=== PATIENT | female | born 1960 | race Caucasian/White ===

== ENCOUNTER 2021-01-12 13:42 | Emergency (ER) | payer OTHER ==
[~2021-01-12 13:42] MED LIST: PREDNISONE20 MG PO; PROVENTIL HFA6.7 GM INH; VIBRAMYCIN100 MG PO
[2021-01-12 14:47] LABS: HEMOGLOBIN 10.6 gm/dl (12.3-15.3); RED BLOOD COUNT 4.13 M/UL (4.00-5.10); WHITE BLOOD COUNT 7.9 K/UL (4.5-11.0)
[2021-01-12 15:07] LABS: BUN/CREATININE RATIO 15 (0-10)
[2021-01-12] MEDS ORDERED: CELEBREX100 MG PO (19:56)
== END 2021-01-12 20:24 | disposition home or self-care (01) ==
LOC: ER1 13:42
PROVIDERS: Physician Assistant Medical
DX: M54.5 Low back pain (principal); K21.9 Gastro-esophageal reflux disease without esophagitis; Z88.6 Allergy status to analgesic agent
CPT/HCPCS: 80053; 81001; 85025; 96374; 99284; J1885; Q9967

== ENCOUNTER → 2021-02-18 | Day surgery (SDC) | payer OTHER ==
[~2021-02-18] MED LIST changes: +AMITRIPTYLINE H25 MG PO; +CELEBREX100 MG PO; +GABAPENTIN600 MG PO; +NORFLEX 100 MG100 MG PO; +PREMPRO 0.625-1 EACH PO; +PROTONIX 40 MG40 M1 PO; +PROZAC40 MG PO
== END | disposition home or self-care (01) ==
LOC: OR 06:39
DX: R10.30 Lower abdominal pain, unspecified (principal); R19.7 Diarrhea, unspecified; K57.30 Diverticulosis of large intestine without perforation or abscess without bleeding; M62.838 Other muscle spasm; K21.9 Gastro-esophageal reflux disease without esophagitis; D64.9 Anemia, unspecified; M19.90 Unspecified osteoarthritis, unspecified site; F32.9 Major depressive disorder, single episode, unspecified; F17.200 Nicotine dependence, unspecified, uncomplicated; Z88.6 Allergy status to analgesic agent; Z88.8 Allergy status to other drugs, medicaments and biological substances; Z79.899 Other long term (current) drug therapy
CPT/HCPCS: J2704; J7030

== ENCOUNTER → 2021-03-10 | Outpatient (CLI) | payer OTHER | LOC: KOH-I 13:28 | DX: N95.0 Postmenopausal bleeding (principal); R10.32 Left lower quadrant pain; R93.89 Abnormal findings on diagnostic imaging of other specified body structures | CPT/HCPCS: 76856 ==